=== PATIENT | male | born 1950 | race Caucasian/White ===

== ENCOUNTER → 2016-10-14 | Outpatient (CLI) | payer OTHER, BC ==
[~2016-10-14] MED LIST: ALLOPURINOL100 MG PO; ASPIR 8181 M1 PO; Aldactone PO; BENICAR HCT 401 EAC1 PO; Benicar HCT 40/25 PO; CALCIUM 600 WI1 EAC1 PO; CARDURA XL8 MG PO; CYMBALTA30 MG PO; Calcium Carbonate,Ca PO; DOXAZOSIN MESYLA4 MG PO; Ecotrin PO; FIBER LAXATIV0.52 GM PO; FLEXERIL10 MG PO; Fiber Choice PO; Fish Oil PO; Flexeril PO; GABAPENTIN300 MG PO; HYDROCHLOROTHIA25 MG PO; HYDROCODON-ACE1 EAC5 PO; HYDROCODON-ACE1 EAC9 PO; KALEXATE15 GM PO; LIPITOR40 MG PO; Lipitor PO; METOPROLOL SUC100 MG PO; MOVE FREE1 CAPSULE PO; Neurontin PO; Norco 10/325 PO; OMEPRAZOLE20 MG PO; PLAVIX75 MG PO; PriLOSEC PO; SPIRONOLACTONE50 MG PO; TRICOR145 MG PO; TRIPLE OMEGA 31 EACH PO; Toprol XL PO; ZESTRIL30 MG PO; ZETIA10 MG PO; Zestril,Prinivil PO; Zyloprim PO; [UNRECOGNIZED DRUG - OTHER] PO
[2016-10-14 09:15] LABS: PTT 27.3 (25-32)
== END | disposition home or self-care (01) ==
LOC: OPR 08:00 → EDSTATUS 09:00 → OPR 09:00
PROVIDERS: Internal Medicine Nephrology
PROC: 0TB03ZX Excision of Right Kidney, Percutaneous Approach, Diagnostic (ICD-10-PCS; principal; 2016-10-14)
DX: R80.9 Proteinuria, unspecified (principal); N18.9 Chronic kidney disease, unspecified; M10.9 Gout, unspecified
CPT/HCPCS: 77012; 85610; 85730; 88305 90; 88313 90; 88346 90; 88348 90; J3010